=== PATIENT | male | born 1995 | race African-American/Black ===

== ENCOUNTER 2016-09-13 21:36 | Emergency (ER) | payer MEDICAID ==
[~2016-09-13] VITALS: Ht 177.8 cm; Wt 68.2 kg
[2016-09-13 21:50] VITALS: BP 146/89
== END 2016-09-13 23:48 | disposition left against medical advice (07) ==
LOC: EMS 21:37
DX: R51 Headache (principal); Z53.21 Procedure and treatment not carried out due to patient leaving prior to being seen by health care provider

== ENCOUNTER 2016-10-02 01:47 | Emergency (ER) | payer MEDICAID ==
[~2016-10-02] VITALS: Ht 172.7 cm; Wt 76.4 kg
[2016-10-02 01:51] VITALS: BP 126/93
== END 2016-10-02 02:44 | disposition left against medical advice (07) ==
LOC: EMS 01:48
DX: R09.81 Nasal congestion (principal); F17.210 Nicotine dependence, cigarettes, uncomplicated; Z53.21 Procedure and treatment not carried out due to patient leaving prior to being seen by health care provider